=== PATIENT | male | born 1965 | race Caucasian/White ===

== ENCOUNTER 2021-10-10 05:35 | Emergency (ER) | payer OTHER ==
[~2021-10-10] VITALS: Ht 190.5 cm; Wt 103.1 kg
--- NOTE | 2021-10-10 05:57 | NUR ---
ring removed using ring cutter. pt tolerated well.
[2021-10-10 06:13] VITALS: BP 155/95
== END 2021-10-10 06:18 | disposition home or self-care (01) ==
LOC: ER 05:36
DX: Z13.89 Encounter for screening for other disorder (principal); M79.645 Pain in left finger(s); Z72.89 Other problems related to lifestyle
CPT/HCPCS: 99281; 99284